=== PATIENT | female | born 1970 ===

== ENCOUNTER 2017-07-28 11:45 | Inpatient (IN) | payer OTHER ==
[~2017-07-28] VITALS: Ht 157.5 cm; Wt 56.7 kg
[2017-08-04] MEDS ORDERED: OXYC1TAB9 PO (08:42)
[2017-08-04] MEDS ORDERED: NABUMETONE750 MG PO (08:42)
[2017-08-04] MEDS ORDERED: MACROBID 100 M100 MG PO (08:42)
[2017-08-04] MEDS ORDERED: Mylicon 125MG PO (08:42)
[2017-08-04] MEDS ORDERED: DOCUSATE SODIU100 MG PO (08:42)
== END 2017-08-04 10:12 | disposition home or self-care (01) | DRG 742 ==
LOC: O/R 08-01 06:10 → SURH 08-01 09:45 → SURG 08-01 13:15 → OB/GYN 08-01 13:32 → SURH 08-01 13:44
PROVIDERS: Obstetrics & Gynecology; Urology
PROC: 0TQB0ZZ Repair Bladder, Open Approach (ICD-10-PCS; 2017-08-01)
PROC: 0UT90ZZ Resection of Uterus, Open Approach (ICD-10-PCS; principal; 2017-08-01 09:45)
PROC: 0UT70ZZ Resection of Bilateral Fallopian Tubes, Open Approach (ICD-10-PCS; 2017-08-01 09:45)
PROC: 0TNB0ZZ Release Bladder, Open Approach (ICD-10-PCS; 2017-08-01 09:45)
DX: D25.1 Intramural leiomyoma of uterus (principal); N99.72 Accidental puncture and laceration of a genitourinary system organ or structure during other procedure; D25.2 Subserosal leiomyoma of uterus; N73.6 Female pelvic peritoneal adhesions (postinfective)